=== PATIENT | female | born 1935 | race Caucasian/White ===

== ENCOUNTER 2019-04-18 18:35 | Observation (INO) | payer OTHER ==
[2019-04-18 18:50] LABS: Absolute Lymphocytes (CBC) 2.3 K/uL (0.7-4.9); Basophils % 1.1 % (0-1.3); Lymphocytes % 20.7 % (15.3-44.8); MPV 8.2 fL (7.6-11.3); RBC Red Blood Cell Count 4.86 M/uL (3.86-4.86)
[2019-04-18 18:54] LABS: Protime INR 1.04
--- NOTE | 2019-04-18 19:13 | EDPHYS ---
Physician Documentation [facility] Name: Socorro Calzada Age: 83 yrs Sex: Female : 1935 Arrival Date: 04/18/2019 Time: 18:37 Bed 3 Private MD: ED Physician Ras Barrera HPI: 04/18 19:05 This 83 yrs old Female presents to ER via Unassigned with complaints of Chest keith Pain. 19:05 The patient or guardian reports chest pain that is located primarily in the substernal keith area. Onset: today. The pain does not radiate. Associated signs and symptoms: The patient has no apparent associated signs or symptoms. The chest pain is described as a pressure. Duration: The patient or guardian reports a single episode, that is now resolved. Severity of pain: At its worst the pain was moderate in the emergency department the pain has resolved and did so just prior to arrival. 19:10 Modifying factors: The symptoms are alleviated by nothing. the symptoms are aggravated keith by nothing. The patient has not experienced similar symptoms in the past. Historical: - Immunization history:: Adult Immunizations up to date. - Social history:: Smoking status: Patient/guardian denies using tobacco. - Family history:: not pertinent. - Ebola Screening: : Patient denies exposure to infectious person Patient denies travel to an Ebola-affected area in the 21 days before illness onset. ROS: 19:05 Constitutional: Negative for fever, chills, and weight loss, Eyes: Negative for injury, keith pain, redness, and discharge, ENT: Negative for injury, pain, and discharge, Neck: Negative for injury, pain, and swelling, Respiratory: Negative for shortness of breath, cough, wheezing, and pleuritic chest pain, Abdomen/GI: Negative for abdominal pain, nausea, vomiting, diarrhea, and constipation, Back: Negative for injury and pain, : Negative for injury, bleeding, discharge, and swelling, MS/Extremity: Negative for injury and deformity, Skin: Negative for injury, rash, and discoloration, Neuro: Negative for headache, weakness, numbness, tingling, and seizure, Psych: Negative for depression, anxiety, suicide ideation, homicidal ideation, and hallucinations, Allergy/Immunology: Negative for hives, rash, and allergies, Endocrine: Negative for neck swelling, polydipsia, polyuria, polyphagia, and marked weight changes, Hematologic/Lymphatic: Negative for swollen nodes, abnormal bleeding, and unusual bruising. 19:05 Cardiovascular: Positive for chest pain, palpitations. Exam: 19:05 Constitutional: This is a well developed, well nourished patient who is awake, alert, keith and in no acute distress. Head/Face: Normocephalic, atraumatic. Eyes: Pupils equal round and reactive to light, extra-ocular motions intact. Lids and lashes normal. Conjunctiva and sclera are non-icteric and not injected. Cornea within normal limits. Periorbital areas with no swelling, redness, or edema. ENT: Nares patent. No nasal discharge, no septal abnormalities noted. Tympanic membranes are normal and external auditory canals are clear. Oropharynx with no redness, swelling, or masses, exudates, or evidence of obstruction, uvula midline. Mucous membranes moist. Neck: Trachea midline, no thyromegaly or masses palpated, and no cervical lymphadenopathy. Supple, full range of motion without nuchal rigidity, or vertebral point tenderness. No Meningismus. Chest/axilla: Normal chest wall appearance and motion. Nontender with no deformity. No lesions are appreciated. Cardiovascular: Regular rate and rhythm with a normal S1 and S2. No gallops, murmurs, or rubs. Normal PMI, no JVD. No pulse deficits. Respiratory: Lungs have equal breath sounds bilaterally, clear to auscultation and percussion. No rales, rhonchi or wheezes noted. No increased work of breathing, no retractions or nasal flaring. Abdomen/GI: Soft, non-tender, with normal bowel sounds. No distension or tympany. No guarding or rebound. No evidence of tenderness throughout. Back: No spinal tenderness. No costovertebral tenderness. Full range of motion. Female : Normal external genitalia. Skin: Warm, dry with normal turgor. Normal color with no rashes, no lesions, and no evidence of cellulitis. MS/ Extremity: Pulses equal, no cyanosis. Neurovascular intact. Full, normal range of motion. Neuro: Awake and alert, GCS 15, oriented to person, place, time, and situation. Cranial nerves II-XII grossly intact. Motor strength 5/5 in all extremities. Sensory grossly intact. Cerebellar exam normal. Normal gait. Psych: Awake, alert, with orientation to person, place and time. Behavior, mood, and affect are within normal limits. 19:05 Musculoskeletal/extremity: DVT Exam: No signs of deep vein thrombosis. no pain, no swelling, no tenderness, negative Homans' sign noted on exam, no appreciated bluish discoloration, no erythema, no increased warmth. Vital Signs: 19:37 BP 179 / 79; Pulse 85; Resp 17; Pulse Ox 98% on R/A; ss 19:42 Weight 89.18 kg (M); rv 19:57 BP 180 / 91; Pulse 78; Resp 17; Pulse Ox 100% on R/A; rv 21:29 BP 168 / 73; Pulse 59; Resp 18; Pulse Ox 98% on R/A; rv MDM: 18:39 Patient medically screened. [facility] 19:08 Data reviewed: vital signs, nurses notes, lab test result(s), EKG, radiologic studies, keith plain films. 04/18 18:40 Order name: Basic Metabolic Panel; Complete Time: 19:21 [facility] 04/18 18:40 Order name: CBC with Diff; Complete Time: 19:09 [facility] 04/18 18:40 Order name: LFT's; Complete Time: 19:21 [facility] 04/18 18:40 Order name: Magnesium; Complete Time: 19:21 [facility] 04/18 18:40 Order name: NT PRO-BNP; Complete Time: 19:21 [facility] 04/18 18:40 Order name: PT-INR; Complete Time: 19:09 [facility] 04/18 18:40 Order name: Troponin (emerg Dept Use Only); Complete Time: 19:21 [facility] 04/18 18:40 Order name: Lipase; Complete Time: 19:21 [facility] 04/18 18:40 Order name: Urine Culture [facility] 04/18 19:05 Order name: TSH [facility] 04/18 19:05 Order name: Thyroid Stimulating Hormone [facility] 04/18 19:10 Order name: Urine Dipstick--Ancillary (enter results) [facility] 04/18 20:13 Order name: Basic Metabolic Panel [facility] 04/18 20:13 Order name: Basic Metabolic Panel [facility] 04/18 18:40 Order name: XRAY Chest (1 view) [facility] 04/18 20:13 Order name: Echo with Doppler [facility] 04/18 20:13 Order name: CBC with Automated Diff [facility] 04/18 20:13 Order name: CBC with Automated Diff [facility] 04/18 20:13 Order name: Lipid Profile [facility] 04/18 20:13 Order name: Lipid Profile [facility] 04/18 20:13 Order name: T4 Free [facility] 04/18 20:13 Order name: T4 Free [facility] 04/18 20:13 Order name: Troponin I [facility] 04/18 20:13 Order name: Troponin I [facility] 04/18 20:13 Order name: Troponin I [facility] 04/18 20:13 Order name: Thyroid Stimulating Hormone [facility] 04/18 20:13 Order name: Thyroid Stimulating Hormone [facility] 04/18 18:40 Order name: EKG; Complete Time: 18:42 [facility] 04/18 18:40 Order name: Cardiac monitoring; Complete Time: 18:59 [facility] 04/18 18:40 Order name: EKG - Nurse/Tech; Complete Time: 18:59 [facility] 04/18 18:40 Order name: IV Saline Lock; Complete Time: 18:59 [facility] 04/18 18:40 Order name: Labs collected and sent; Complete Time: 18:59 [facility] 04/18 18:40 Order name: O2 Per Protocol; Complete Time: 18:59 [facility] 04/18 18:40 Order name: O2 Sat Monitoring; Complete Time: 18:59 [facility] 04/18 18:40 Order name: Urine Dipstick-Ancillary (obtain specimen); Complete Time: 19:04 [facility] 04/18 18:43 Order name: EKG Electrocardiogram [facility] 04/18 20:13 Order name: CONS Physician Consult [facility] 04/18 20:13 Order name: Heart Healthy [facility] 04/18 20:13 Order name: EKG Electrocardiogram [facility] 04/18 20:13 Order name: EKG Electrocardiogram [facility] Administered Medications: 19:54 Drug: Lopressor (metoprolol TARTRATE) 50 mg Route: PO; rv 21:31 Follow up: Response: No adverse reaction rv 19:54 Drug: Pepcid 20 mg Route: IVP; Site: right forearm; rv 21:31 Follow up: Response: No adverse reaction rv 19:55 Drug: Aspirin Chewable Tablet 324 mg Route: PO; rv 21:31 Follow up: Response: No adverse reaction rv 19:55 Drug: Lovenox 1 mg/kg Route: Sub-Q; Site: right lower abdomen; rv 21:31 Follow up: Response: No adverse reaction rv 19:55 Drug: Rocephin 1 grams Route: IV; Rate: per protocol; Site: right forearm; rv 21:31 Follow up: IV Status: Completed infusion rv 21:32 Follow up: IV Status: Completed infusion rv Disposition: 04/18/19 19:12 Hospitalization ordered by Odalis Anglin for Observation. Preliminary diagnosis are Chest pain, unspecified, Palpitations, Urinary tract infection, site not specified. - Bed requested for Telemetry/MedSurg (observation). - Status is Observation. rv - Condition is Stable. - Problem is new. - Symptoms have improved. UTI on Admission? Yes Signatures: Dispatcher [employer] EDMS Ras Barrera MD MD cha Smirch, Shelby, RN RN Merary Latham RN RN Elliot Thakkar RN RN rv Corrections: (The following items were deleted from the chart) 21:09 19:12 Hospitalization Ordered by Odalis Anglin MD for Observation. Preliminary cg diagnosis is Chest pain, unspecified; Palpitations; Urinary tract infection, site not specified. Bed requested for Telemetry/MedSurg (observation). Status is Observation. Condition is Stable. Problem is new. Symptoms have improved. UTI on Admission? Yes. [facility] 21:32 21:09 04/18/2019 19:12 Hospitalization Ordered by Odalis Anglin MD for Observation. rv Preliminary diagnosis is Chest pain, unspecified; Palpitations; Urinary tract infection, site not specified. Bed requested for Telemetry/MedSurg (observation). Status is Observation. Condition is Stable. Problem is new. Symptoms have improved. UTI on Admission? Yes. cg
--- NOTE | 2019-04-18 19:13 | ER ---
Nurse's Notes [facility] Name: Socorro Calzada Age: 83 yrs Sex: Female : 1935 Arrival Date: 04/18/2019 Time: 18:37 Bed 3 Private MD: Diagnosis: Chest pain, unspecified;Palpitations;Urinary tract infection, site not specified Presentation: 04/18 18:35 Presenting complaint: Patient states: chest discomfort and palpitations that began ss prior to arrival. Patient reports that her pulse was reading 170 at home on home BP machine. Transition of care: patient was not received from another setting of care. Onset of symptoms was April 18, 2019. Risk Assessment: Do you want to hurt yourself or someone else? Patient reports no desire to harm self or others. Initial Sepsis Screen: Does the patient meet any 2 criteria? No. Patient's initial sepsis screen is negative. Does the patient have a suspected source of infection? No. Patient's initial sepsis screen is negative. Care prior to arrival: None. 18:35 Acuity: WANDA 3 ss 18:35 Method Of Arrival: Ambulatory ss Historical: - Immunization history:: Adult Immunizations up to date. - Social history:: Smoking status: Patient/guardian denies using tobacco. - Family history:: not pertinent. - Ebola Screening: : Patient denies exposure to infectious person Patient denies travel to an Ebola-affected area in the 21 days before illness onset. Screenin:56 Abuse screen: Denies threats or abuse. Denies injuries from another. Nutritional rv screening: No deficits noted. Tuberculosis screening: No symptoms or risk factors identified. Fall Risk None identified. Assessment: 19:55 General: Appears in no apparent distress. comfortable, Behavior is calm, cooperative. rv Pain: Complains of pain in chest Pain does not radiate. Pain began suddenly. Neuro: Level of Consciousness is awake, alert, obeys commands, Oriented to person, place, time, situation. Cardiovascular: Patient's skin is warm and dry. Rhythm is sinus rhythm. Respiratory: Airway is patent. GI: No signs and/or symptoms were reported involving the gastrointestinal system. : No signs and/or symptoms were reported regarding the genitourinary system. EENT: No signs and/or symptoms were reported regarding the EENT system. Derm: Skin is intact. Musculoskeletal: No signs and/or symptoms reported regarding the musculoskeletal system. 19:58 Reassessment: patient appears to be more comfortable now compared to when she came in. rv denies any pain. updated on the results of the diagnostics and plan of care while the is in the room. awaiting admission orders for now. Vital Signs: 19:37 BP 179 / 79; Pulse 85; Resp 17; Pulse Ox 98% on R/A; ss 19:42 Weight 89.18 kg (M); rv 19:57 BP 180 / 91; Pulse 78; Resp 17; Pulse Ox 100% on R/A; rv 21:29 BP 168 / 73; Pulse 59; Resp 18; Pulse Ox 98% on R/A; rv ED Course: 18:30 Inserted saline lock: 20 gauge in right forearm, using aseptic technique. Blood rv collected. Patient maintains SpO2 saturation greater than 95% on room air. 18:35 Arm band placed on right wrist. ss 18:37 Patient arrived in ED. mr 18:38 Ras Barrera MD is Attending Physician. keith 18:49 EKG done, by ED staff, reviewed by Ras Barrera MD. jb1 19:02 XRAY Chest (1 view) In Process Unspecified. EDMS 19:12 Odalis Anglin MD is Hospitalizing Provider. keith 19:32 Elliot Thakkar, GARETT is Primary Nurse. rv 19:36 Triage completed. ss 19:57 Patient has correct armband on for positive identification. Placed in gown. Bed in low rv position. Call light in reach. Side rails up X2. Adult w/ patient. desk monitor on. Pulse ox on. NIBP on. 21:30 No provider procedures requiring assistance completed. Patient admitted, IV remains in rv place. Administered Medications: 19:54 Drug: Lopressor (metoprolol TARTRATE) 50 mg Route: PO; rv 21:31 Follow up: Response: No adverse reaction rv 19:54 Drug: Pepcid 20 mg Route: IVP; Site: right forearm; rv 21:31 Follow up: Response: No adverse reaction rv 19:55 Drug: Aspirin Chewable Tablet 324 mg Route: PO; rv 21:31 Follow up: Response: No adverse reaction rv 19:55 Drug: Lovenox 1 mg/kg Route: Sub-Q; Site: right lower abdomen; rv 21:31 Follow up: Response: No adverse reaction rv 19:55 Drug: Rocephin 1 grams Route: IV; Rate: per protocol; Site: right forearm; rv 21:31 Follow up: IV Status: Completed infusion rv 21:32 Follow up: IV Status: Completed infusion rv Outcome: 19:12 Decision to Hospitalize by Provider. keith 21:30 Admitted to Med/surg accompanied by nurse, via wheelchair, room , with chart, Report rv called to MARCOS BAJWA 21:30 Condition: good 21:30 Instructed on the need for admit. 21:32 Patient left the ED. rv Signatures: Dispatcher [employer] EDMS Edil Thornton [email or web address] Ras Barrera MD MD cha Rivera, Mary mr Iraida Wells RN RN Elliot Wen RN RN rv
[2019-04-18 19:18] LABS: ALT/SGPT 24 U/L (12-78); AST/SGOT 17 U/L (15-37); Albumin 3.6 g/dL (3.4-5.0); Alkaline Phosphatase 98 U/L (45-117); BUN Blood Urea Nitrogen 19 mg/dL (7-18); Bicarbonate 28 mmol/L (21-32); Bilirubin Direct < 0.1 mg/dL (0-0.2); Bilirubin Total 0.3 mg/dL (0.2-1.0); Glucose Level 108 mg/dL (74-106); Lipase 143 U/L (73-393); Magnesium 2.2 mg/dL (1.8-2.4); NT PRO-BNP 277 pg/mL (<450); Potassium 3.8 mmol/L (3.5-5.1); Protein, Total 7.8 g/dL (6.4-8.2); Sodium Level 143 mmol/L (136-145); Troponin (Emerg Dept Use Only) < 0.02 ng/mL (0.0-0.045)
--- NOTE | 2019-04-18 19:27 | RAD REPORT ---
EXAM DESCRIPTION: RAD - Chest Single View - 04/18/2019 7:05 pm CLINICAL HISTORY: Chest pain COMPARISON: December 2015 TECHNIQUE: AP portable chest image was obtained 1859 hours . FINDINGS: No focal lung parenchymal process. Mild prominent interstitial pattern matches comparison. Heart and vasculature are normal. No measurable pleural effusion and no pneumothorax. No acute bony abnormality seen. No acute aortic findings suspected. IMPRESSION: No acute cardiopulmonary process. No significant interval change.
[2019-04-18] MEDS ORDERED: ASPIRIN 81 MG CHEWABLE TABLET ONE (19:45)
[2019-04-18] MEDS ORDERED: FAMOTIDINE 20 MG/2 ML VIAL IV ONE (19:46)
[2019-04-18] MEDS ORDERED: ENOXAPARIN 100 MG/ML SYR SQ ONE (19:46)
[2019-04-18] MEDS ORDERED: CEFTRIAXONE/SWI 1gm 1 GM/10 ML SYR ONE (19:46)
[2019-04-18] MEDS ORDERED: METOPROLOL TAR 50 MG TAB ONE (19:46)
[2019-04-18] MEDS ORDERED: MORPHINE 4 MG/ML SYR IV PRN (20:08)
[2019-04-18] MEDS ORDERED: ALPRAZOLAM 0.25 MG TABLET PO PRN (20:08)
[2019-04-18] MEDS ORDERED: ACETAMINOPHEN 500 MG TAB PO PRN (20:08)
[2019-04-18 20:41] LABS: Urine Blood TRACE (NEG); Urine Glucose NEGATIVE (NEG); Urine Protein NEGATIVE (NEG); Urine Specific Gravity 1.015 (1.005-1.030)
[2019-04-18] MEDS ORDERED: METOPROLOL TAR 50 MG TAB PO SCH (21:00)
[2019-04-18] MEDS ORDERED: CEFTRIAXONE 1 GM/NS 50 ML 1 GM/50 ML BAG IV SCH (21:00)
[2019-04-18 22:06] VITALS: BMI 33.4
[2019-04-18] MEDS ORDERED: PNEUMOCOCCAL VACCINE 0.5 ML IMVAC ONE (22:34)
[2019-04-18] MEDS ORDERED: INFLUENZA VACCINE (for 3y+) 0.5 ML DOSE IMVAC ONE (22:34)
[2019-04-19 00:37] VITALS: TEMP 98.2
[2019-04-19 06:02] LABS: Absolute Lymphocytes (CBC) 2.3 K/uL (0.7-4.9); Basophils % 0.8 % (0-1.3); Hematocrit 38.4 % (36.0-45.0); Lymphocytes % 27.9 % (15.3-44.8); MPV 8.3 fL (7.6-11.3); RBC Red Blood Cell Count 4.43 M/uL (3.86-4.86)
[2019-04-19 06:27] LABS: Potassium 3.9 mmol/L (3.5-5.1); Troponin I 0.02 ng/mL (0.0-0.045)
[2019-04-19 06:31] LABS: Thyroid Stimulating Hormone 4.27 uIU/mL (0.360-3.740)
--- NOTE | 2019-04-19 08:44 | P.HP ---
Certification for Inpatient Patient admitted to: Observation With expected LOS: <2 Midnights Patient will require the following post-hospital care: None Practitioner: I am a practitioner with admitting privileges, knowledge of patient current condition, hospital course, and medical plan of care. Services: Services provided to patient in accordance with Admission requirements found in Title 42 Section 412.3 of the Code of Federal Regulations Patient History Date of Service: 04/18/19 Reason for admission: CP r/o ACS History of Present Illness: Patient is a 83-year-old female came to the hospital with chest discomfort and palpitations. Patient's blood pressure readings suggested that her heart rate were elevated in the 170s. Patient's chest pain was mainly in the sternal region. Patient came into the ER for further evaluation. Patient's initial troponin and EKG were negative. Because of patient's multiple risk factors, we decided to admit the patient to the hospital for observation. Patient has been following up with her primary care provider, Dr. Griffiths, and she was scheduled to have a CT scan of her abdomen because of abdominal discomfort. Will try to get this done while she is in the hospital because of her current clinical symptoms. If this is negative and her cardiac workup is unremarkable she may get to go home later today. Allergies Latex, Natural Rubber Allergy (Mild, Verified 04/18/19 22:07) Itching/Hives/Rash Codeine Allergy (Intermediate, Uncoded 04/18/19 22:07) Shortness of breath Home Medications: Primidone [Mysoline *] 1 tab PO SEECOM 04/18/19 - Past Medical/Surgical History Has patient received pneumonia vaccine in the past: No Diabetic: No -: prolapse uterus -: Tremors -: Borderline COPD -: History of breast cancer on tamoxifen for 80 years -: Lt mastectomy -: EGD 2weeks -: cholecystecomy -: fibroid tumor removal -: D&C -: cataract sx - Family History Father Medical History: Other (see notes) Notes: parkinson - Social History Smoking Status: Never smoker Alcohol use: No CD- Drugs: No Caffeine use: No Place of Residence: Home Review of Systems 10-point ROS is otherwise unremarkable Physical Examination - Vital Signs Temperature: 98.2 F Blood Pressure: 172/78 Pulse: 57 Respirations: 15 Pulse Ox (%): 94 - Physical Exam General: Alert, In no apparent distress, Oriented x3 HEENT: Atraumatic, PERRLA, Mucous membr. moist/pink, EOMI, Sclerae nonicteric Neck: Supple, 2+ carotid pulse no bruit, No LAD, Without JVD or thyroid abnormality Respiratory: Clear to auscultation bilaterally, Normal air movement Cardiovascular: Regular rate/rhythm, Normal S1 S2, Systolic murmur Gastrointestinal: Normal bowel sounds, Soft and benign, Non-distended, No tenderness Musculoskeletal: No clubbing, No swelling, No tenderness Integumentary: No rashes Neurological: Normal gait, Normal speech, Normal strength at 5/5 x4 extr, Normal tone, Sensation intact, Cranial nerves 3-12 intact, Normal affect Lymphatics: No axilla or inguinal lymphadenopathy - Studies Laboratory Data (last 24 hrs) 04/18/19 18:40: PT 12.3, INR 1.04 04/18/19 18:40: WBC 11.1 H, Hgb 14.5, Hct 42.0, Plt Count 259 04/18/19 18:40: Sodium 143, Potassium 3.8, BUN 19 H, Creatinine 0.98, Glucose 108 H, Magnesium 2.2, Total Bilirubin 0.3, AST 17, ALT 24, Alkaline Phosphatase 98, Lipase 143 Assessment & Plan - Problems (Diagnosis) (1) Chest pain, rule out acute myocardial infarction Current Visit: Yes Status: Acute (2) Abdominal discomfort Current Visit: Yes Status: Acute (3) History of breast cancer Current Visit: Yes Status: Acute - Plan 1. Serial troponins and EKG 2. Cardiology consultation 3. Echocardiogram and may need an outpatient stress test if cardiology is agreeable 4. Continue cardiac meds. Also get CT of the abdomen and pelvis 5. Out of bed and ambulate; patient continues to improve and workup is negative she should be able to go home later today. Discharge Plan: Home Plan to discharge in: Greater than 2 days - Advance Directives Does patient have a Living Will: No Does patient have a Durable POA for Healthcare: No - Code Status/Comfort Care Code Status Assessed: Yes Code Status: Full Code Critical Care: No Time Spent Managing PTS Care (In Minutes): 45
--- NOTE | 2019-04-19 08:49 | P.PN ---
Subjective Date of Service: 04/19/19 Patient is clinically doing much better. No longer having any chest pain. She was scheduled to have a CT scan and will go ahead and proceed with this today. Could explain her symptomatology on arrival yesterday. Continue monitoring on telemetry. Await Cardiology input at this time. Review of Systems 10-point ROS is otherwise unremarkable Physical Examination - Vital Signs Temperature: 98.2 F Blood Pressure: 172/78 Pulse: 57 Respirations: 15 Pulse Ox (%): 94 - Physical Exam General: Alert, In no apparent distress, Oriented x3 Respiratory: Clear to auscultation bilaterally, Normal air movement Cardiovascular: Regular rate/rhythm, Normal S1 S2, Systolic murmur Gastrointestinal: Normal bowel sounds, Soft and benign, Non-distended, No tenderness Musculoskeletal: No clubbing, No swelling, No tenderness Neurological: Normal speech, Normal strength at 5/5 x4 extr, Normal tone, Sensation intact, Cranial nerves 3-12 intact, Normal reflexes 2+, Normal affect - Studies Laboratory Data (last 24 hrs) 04/18/19 18:40: PT 12.3, INR 1.04 04/18/19 18:40: WBC 11.1 H, Hgb 14.5, Hct 42.0, Plt Count 259 04/18/19 18:40: Sodium 143, Potassium 3.8, BUN 19 H, Creatinine 0.98, Glucose 108 H, Magnesium 2.2, Total Bilirubin 0.3, AST 17, ALT 24, Alkaline Phosphatase 98, Lipase 143 Medications List Reviewed: Yes Assessment & Plan - Problems (Diagnosis) (1) Chest pain, rule out acute myocardial infarction Current Visit: Yes Status: Acute (2) Abdominal discomfort Current Visit: Yes Status: Acute (3) History of breast cancer Current Visit: Yes Status: Acute - Plan Current plan of care as mentioned below: 1. Serial troponins and EKG have been negative so far. Anticipate discharge home later today 2. Cardiology consultation pending 3. Echocardiogram and may need an outpatient stress test if cardiology is agreeable 4. Continue cardiac meds. Also get CT of the abdomen and pelvis as patient has history of breast cancer and has had some abdominal discomfort 5. Out of bed and ambulate; patient continues to improve and workup is negative she should be able to go home later today. - Advance Directives Does patient have a Living Will: No Does patient have a Durable POA for Healthcare: No - Code Status/Comfort Care Code Status: Full Code Critical Care: No Time Spent Managing PTS Care (In Minutes): 20
[2019-04-19] MEDS ORDERED: HYDRALAZINE HCL 20 MG/ML VIAL IV PRN (08:58)
[2019-04-19] MEDS: ASPIRIN EC 81 MG TAB PO SCH ×2 (09:00→09:05)
[2019-04-19] MEDS ORDERED: AMLODIPINE 10 MG TAB PO SCH (09:00)
[2019-04-19] MEDS ORDERED: ENOXAPARIN 40 MG/0.4 ML SQ SCH (09:00)
[2019-04-19] MEDS ORDERED: CEFTRIAXONE/SWI 1gm 1 GM/10 ML SYR IV SCH (09:00)
[2019-04-19] MEDS ORDERED: LOSARTAN POTASSIUM 50 MG TABLET PO SCH (09:00)
--- NOTE | 2019-04-19 09:36 | EKG ---
Test Date: 2019-04-18 Test Time: 18:46:13 Lens Inspector: BRINA MEASUREMENT RESULTS: Intervals: Rate: 84 WA: 178 QRSD: 82 QT: 396 QTc: 467 [place]: P: 58 WA: 178 QRS: -26 T: 48 INTERPRETIVE STATEMENTS: Normal sinus rhythm Inferior infarct, age undetermined Possible Anterior infarct, age undetermined Abnormal ECG Compared to ECG 12/24/2015 14:41:14 Myocardial infarct finding now present Electronically Signed On 04-19-19 09:35:09 CDT by Ronald Hinojosa
[2019-04-19] MEDS ORDERED: REGADENOSON 0.4 MG/5 ML SYR IV ONE (10:40)
--- NOTE | 2019-04-19 11:09 | ECHO ---
HEIGHT: 5 ft 4 in WEIGHT: 194 lb 11.2 oz DATE OF STUDY: 04/19/[address]: Odalis Anglin MD 2-DIMENSIONAL: YES M.MODE: YES DOPPLER: YES COLOR FLOW: YES TDS: NO PORTABLE: NO DEFINITY: NO BUBBLE STUDY: NO DIAGNOSIS: CHEST PAIN CARDIAC HISTORY: CATHERIZATION: NO SURGERY: NO PROSTHETIC VALVE: NO PACEMAKER: NO MEASUREMENTS (cm) DIASTOLIC (NORMALS) SYSTOLIC (NORMALS) IVSd 0.9 (0.6-1.2) LA Diam 3.7 (1.9-4.0) LVEF 79% LVIDd 4.6 (3.5-5.7) LVIDs 2.4 (2.0-3.5) %FS 47% LVPWd 1.1 (0.6-1.2) Ao Diam 2.5 (2.0-3.7) 2 DIMENSIONAL ASSESSMENT: RIGHT ATRIUM: NORMAL LEFT ATRIUM: NORMAL RIGHT VENTRICLE: NORMAL LEFT VENTRICLE: NORMAL TRICUSPID VALVE: NORMAL MITRAL VALVE: NORMAL PULMONIC VALVE: NORMAL AORTIC VALVE: NORMAL PERICARDIAL EFFUSION: NONE AORTIC ROOT: NORMAL LEFT VENTRICULAR WALL MOTION: NORMAL. DOPPLER/COLOR FLOW: TRACE OF MITRAL REGURGITATION. COMMENTS: NORMAL 2D ECHO. TRACE OF MITRAL REGURGITATION. TECHNOLOGIST: GENEVA BROOKE
--- NOTE | 2019-04-19 11:12 | RAD REPORT ---
EXAM DESCRIPTION: CT - Abdomen Pelvis W Contrast - 04/19/2019 10:48 am CLINICAL HISTORY: Abdominal pain COMPARISON: 2016 TECHNIQUE: Computed axial tomography of the abdomen pelvis was obtained. 100 cc Isovue-300 was admin istered intravenously. Oral contrast was not requested which limits evaluation of bowel. All CT scans are performed using dose optimization technique as appropriate and may include automated exposure control or mA/KV adjustment according to patient size. FINDINGS: The liver, spleen, pancreas, adrenal and right kidney appear unremarkable. A 6.8 centimeter left renal cyst without significant 2 There is no evidence of diverticulitis. The wall of distal rectum appears mildly thickened Small hiatal hernia IMPRESSION: Apparent thickening of the wall of the distal rectum may be secondary to incomplete dist ention, inflammation or mass. Digital examination recommended.
--- NOTE | 2019-04-19 12:12 | EKG ---
Test Date: 2019-04-19 Test Time: 07:43:14 [employer] Supervisor: EDDIE MEASUREMENT RESULTS: Intervals: Rate: 60 MA: 222 QRSD: 86 QT: 446 QTc: 446 [place]: P: 46 MA: 222 QRS: -20 T: 20 INTERPRETIVE STATEMENTS: Sinus rhythm with sinus arrhythmia with 1st degree AV block Possible Anterior infarct, age undetermined Abnormal ECG Compared to ECG 04/18/2019 18:46:13 First degree AV block now present Myocardial infarct finding still present Electronically Signed On 04-19-19 12:10:41 CDT by Ronald Hinojosa
[2019-04-19 12:47] VITALS: O2SAT 98
[2019-04-19] MEDS ORDERED: ONDANSETRON 4 MG/2 ML VIAL IV PRN (13:15)
--- NOTE | 2019-04-19 14:05 | CON ---
Identifying Data: An 83-year-old woman. Chief Complaint: Heart racing and pressure in the chest. History Of Present Illness: Ms. Calzada was in her usual state of health. She is undergoing a work up for abdominal pain, but she notes that over the years, she has had frequent episodes of feeling he r heart palpitate and race yesterday that happened and it lasted long enough. Her have her w alk into his room. He has a blood pressure cuff not automated. He is very confident. He listened t o her heart and took blood pressure and noted her heart rate was in the 140 to 150 range, irregular. It went away before they got to the hospital, but they decided to come to the hospital. Since that has occurred, she has been in sinus rhythm, sinus bradycardia. Cardiac enzymes are normal. Patient does not have diabetes, hypertension, dyslipidemia, history of tobacco, alcohol, or caffeine use. He r only home medication is primidone. She is allergic to natural rubber and codeine. She has never h ad myocardial infarction, never had an evaluation for her palpitations. Physical Examination: General: She is 5 feet 4 inches, 194 pounds. Alert, oriented, pleasant, not in distress. Neck: Carotids, no bruit. Lungs: Clear. Heart: Regular rate and rhythm. No murmur, rub, or gallop. Abdomen: Soft. Extremities: No cyanosis, clubbing, or edema. Distal pulses normal. Laboratory Data: EKG shows sinus bradycardia in the 50s, otherwise normal. Impression: The patient has an arrhythmia. Most likely, we have not seen it, so it would only be ga s work, but by far the most likely rhythm she has is paroxysmal atrial fibrillation. I think we shou ld do an echo pharmacologic stress test. Continue to monitor her rhythm. If we have not seen any at [facility] fibrillation, she should wear a 30-day event monitor or get an implantable loop recorder to see if she has atrial fibrillation. If so, she would need to be anticoagulated and be on antiarrhythmic drug. RUTHY/IGNACIO Voice ID: [id number] Report ID: [id number]
--- NOTE | 2019-04-19 14:05 | RAD REPORT ---
EXAM DESCRIPTION: NM - Rest Stress Cardiac Imaging - 04/19/2019 1:57 pm CLINICAL HISTORY: CP Chest pain. COMPARISON: No comparisons TECHNIQUE: The patient was administered approximately 10mCi of Tc 99m Sestamibi prior to resting SPE CT imaging of the heart. The patient was then administered approximately 30 mCi of Tc 99m Sestamibi f ollowing exercise or pharmacologic stress. Multiplanar SPECT images were reviewed. FINDINGS: No stress induced ischemic defect is seen to suggest stress induced ischemia. No fixed def ect is seen to suggest hibernating myocardium or scarred myocardium. The end diastolic volume is 74 ml, the end systolic volume is 21 ml, and the ejection fraction is 71 %. IMPRESSION: No stress induced ischemia.
[2019-04-19] MEDS ORDERED: HYDROCORTISONE ACETATE 25MG SUPP PR PRN (16:20)
--- NOTE | 2019-04-19 17:52 | P.DS ---
Admission Date: 04/18/19 Discharge Date: 04/19/19 Disposition: ROUTINE DISCHARGE Discharge Condition: GOOD Reason for Admission: CP r/o ACS Consultations: Cardiology-Dr. Hinojosa. - Problems (1) Abdominal discomfort Current Visit: Yes Status: Acute (2) Chest pain, rule out acute myocardial infarction Current Visit: Yes Status: Acute Brief History of Present Illness: 83-year-old woman presented to the emergency department with a complaint of chest pain and palpitation. She described a substernal and epigastric pain. Her blood pressure was noted to be elevated with systolic in the 180s on presentation. It appears her heart rate in during the blood pressure really was 170. Patient is suspected to have experienced an arrhythmia. Her initial troponin was negative, chest x-ray demonstrated no acute disease. EKG showed normal sinus rhythm. Patient was placed under observation for ACS rule out. Hospital Course: Troponin trended x3 was negative. No arrhythmia identified on the cardiac rehabilitation specialist. She was evaluated by cardiology, Aks stress test and echocardiogram were performed which were unremarkable. No stress-induced ischemia or scarring was reported on the nuclear stress test. An arrhythmia is suspected. Her blood pressure was also elevated with systolic in the 170s during the hospital stay. Patient is started on Norvasc and losartan. Dr. Hinojosa recommended outpatient event monitor. Patient is deemed clinically stable for discharge. She will follow with Dr. Hinojosa in the office for arrangement for event monitor. Vital Signs/Physical Exam: Temp Pulse Resp BP Pulse Ox 98.2 F 57 15 172/78 H 94 04/19/19 13:55 04/19/19 09:00 04/19/19 08:49 04/19/19 09:00 04/19/19 08:49 General: Alert, In no apparent distress, Oriented x3 HEENT: Mucous membr. moist/pink Neck: Supple, JVD not distended Respiratory: Clear to auscultation bilaterally, Normal air movement Cardiovascular: No edema, Normal pulses, Regular rate/rhythm, Normal S1 S2, No murmurs Capillary refill: <2 Seconds Gastrointestinal: Normal bowel sounds, Soft and benign, Non-distended, No tenderness Musculoskeletal: No clubbing, No swelling Integumentary: No rashes Neurological: Normal strength at 5/5 x4 extr, Cranial nerves 3-12 intact Laboratory Data at Discharge: WBC 8.2 K/uL (4.3-10.9) D 04/19/19 05:31 Hgb 12.9 g/dL (12.0-15.0) 04/19/19 05:31 Hct 38.4 % (36.0-45.0) 04/19/19 05:31 Plt Count 244 K/uL (152-406) 04/19/19 05:31 PT 12.3 SECONDS (9.5-12.5) 04/18/19 18:40 INR 1.04 04/18/19 18:40 Sodium 144 mmol/L (136-145) 04/19/19 05:31 Potassium 3.9 mmol/L (3.5-5.1) 04/19/19 05:31 BUN 17 mg/dL (7-18) 04/19/19 05:31 Creatinine 0.78 mg/dL (0.55-1.3) 04/19/19 05:31 Glucose 84 mg/dL (74-106) 04/19/19 05:31 Magnesium 2.2 mg/dL (1.8-2.4) 04/18/19 18:40 Total Bilirubin 0.3 mg/dL (0.2-1.0) 04/18/19 18:40 AST 17 U/L (15-37) 04/18/19 18:40 ALT 24 U/L (12-78) 04/18/19 18:40 Alkaline Phosphatase 98 U/L (45-117) 04/18/19 18:40 Troponin I 0.02 ng/mL (0.0-0.045) 04/19/19 05:31 Triglycerides Cancelled 04/19/19 06:00 Cholesterol Cancelled 04/19/19 06:00 HDL Cholesterol Cancelled 04/19/19 06:00 Cholesterol/HDL Ratio Cancelled 04/19/19 06:00 Lipase 143 U/L (73-393) 04/18/19 18:40 Home Medications: Primidone [Mysoline *] 1 tab PO SEECOM 04/18/19 Amlodipine [Norvasc*] 10 mg PO DAILY 30 Days #30 tab 04/19/19 Hydrocort Acetate Suppos [Anucort-Hc Suppository*] 50 mg TN BID PRN 30 Days #60 supp 04/19/19 Losartan Potassium [Cozaar*] 50 mg PO BID 30 Days #60 tablet 04/19/19 New Medications: Amlodipine [Norvasc*] 10 mg PO DAILY 30 Days #30 tab Hydrocort Acetate Suppos [Anucort-Hc Suppository*] 50 mg TN BID PRN 30 Days #60 supp PRN Reason: Hemorrhoids Losartan Potassium [Cozaar*] 50 mg PO BID 30 Days #60 tablet Diet: AHA Activity: Ad garry Followup: Ronald Hinojosa MD [ACTIVE - CAN ADMIT] - 1-2 Days
--- NOTE | 2019-04-20 08:24 | TREADPHA ---
DX: CHEST PAIN Date of Study: 04/19/19 Ht: 5 4 Wt: 194 lb 11.2 oz Consulting Physician: ASIM MEDICATIONS: TYLENOL, XANAX, NORVASC, ASPIRIN, LOVENOX, COZAAR, APRESOLINE HISTORY: 83 YEAR OLD FEMALE WITH COMPLAINTS OF CHEST PAIN. HISTORY OF ESSENTIAL TREMORS, HYPERTENSION, BREAST CANCER LEFT BREAST MASTECTOMY, NON DRINKERS, NON SMOKER PHYSICIAL EXAMINATION: RESTING B.P.: 176/82 RESTING H.R.: 68 RESTING EKG: NORMAL. PROTOCOL: LEXISCAN EXERCISE TIME: 3:30 B.P. AT PEAK STRESS: 163/74 IMPRESSION: LEXISCAN INJECTED, FOLLOWED BY CARDIOLITE PER PROTOCOL, SEE NUCLEAR MEDICINE REPORT. NO SUPRA VENTRICULAR TACHYCARDIA, VENTRICULAR TACHYCARDIA, PREMATURE ATRIAL COMPLEXES, PREMATURE VENTRICULAR COMPLEXES. PATIENT REPORTS NO CHEST PAIN. NON DIAGNOSTIC EKG WITH LEXISCAN STRESS.
[2019-04-22 04:45] VITALS: BP 172/78
== END 2019-04-19 18:44 | disposition home or self-care (01) ==
LOC: ER 18:35 → ERHOLD 20:26 → 2ND 21:21
PROVIDERS: ADMIT Hospitalist; ATTEND Hospitalist
DX: R07.9 Chest pain, unspecified (principal); R10.9 Unspecified abdominal pain; R00.2 Palpitations; Z85.3 Personal history of malignant neoplasm of breast; Z91.040 Latex allergy status
CPT/HCPCS: 96365; 93005 ×2; 93017; 93306; 87088; 85025 ×2; 87086; 80048 ×2; 36415; 83735; 85610; 80061; 80076; 84443 ×2; 87077; 87186; 81003; 84484 ×3; 84439; 83690; 83880; 74177; 71045; 78452; 96375; 96372; 99285; 96366; Q9967; J0360; J1650; J2785; J0696 ×2; J2405; A9500; G0378 ×3

== ENCOUNTER 2023-04-25 02:59 | Observation (INO) | payer OTHER ==
--- OUTSIDE RECORDS SUMMARY | 2023-04-25 03:01 | XMS REPORT | Continuity of Care Document ---
:1935 Author Organization [facility] t Address [address] [facility] [address] [place] [id number] Care Team Providers Name Role Phone PCP, PATIENT DOES NOT HAVE A Primary Care Physician Unavaila ble Vaccine, Ang Db Uc Attending Clinician Unavailable Unknown, Attending Attending Clinician Unavailable ROYER BALDWIN Attending Clinician Unavailable Vaccine, Ang Db Cbc Fam Attending Clinician Unavailable Rayray SCHULTZ, Ry Moy Attending Clinician RY MONTIEL Attending Clinician Unavailable Sheila Jiang RN Attending Clinician Unavailable DENY GIVENS Attending Clinician Unavailable Only, Ang Db Test Attending Clinician Unavailable Emmanuel SCHULTZ, Deny Attending Clinician Payers Payer Name Policy Type Policy Number Effective Date Expiration Date S ource Problems This patient has no known problems. Allergies, Adverse Reactions, Alerts Allergy Allergy Status Severity Reaction(s) Onset Inactive Treating Comm ents Source Name Type Date Date Clinician NO KNOWN Drug Active [facility] Social History Social Habit Start Date Stop Date Quantity Comments Source Exposure to 2022-06-17 2022-06-27 Not sure [facility] SARS-CoV-2 (event) 00:00:00 09:01:00 Medica l Branch Sex Assigned At [address] 1935 [facility] 00:00:00 00:00:00 Medical Branch Smoking Status Start Date Stop Date Source Tobacco smoking consumption [facility] unknown Branch Medications This patient has no known medications. Procedures Procedure Date / Time Performed Performing Clinician Sourc e SARS-COV-2 COVID-19 2022-06-27 15:09:57 Doctor [facility], [facility] Name Medical [facility] 12 YRS+, BIVALENT 0.3ML, IM, (PFIZER CAMACHO TOP BOOSTER) SARS-COV-2 COVID-19 2021-11-24 14:16:46 Doctor Unassigned, No [facility] [place] [facility]ACC[facility] 12 Name [facility] YRS+,0.3ML,IM (PFIZER - CAMACHO TOP) Encounters Start End Encounter Admission Attending Care Care Encounter Source Date/Time Date/Time Type Type Clinicians Facility Department ID 2022-06-27 2022-06-27 Imm/Inj Vaccine, Ang Db [facility] [id number] Univers 09:00:00 09:10:00 Visit Unknown, [facility] HEALTH [id number] ity [facility] [id number] Candelario as SHAN?BLEA [id number] [address] MEDICAL OFFICE BUILDING 2022-06-27 2022-06-27 Outpatient R DENNY [facility] [id number] Univers 09:00:00 09:00:00 ROYER wells [facility] 2021-11-24 2021-11-24 Imm/Inj Vaccine, Ang Db [facility] [id number] Univers 09:00:00 09:10:00 Visit Rayray [facility] [id number] ity [facility] [id number] Candelario as SHAN?BLEA [id number] [address] MEDICAL OFFICE [facility] 2021-11-24 2021-11-24 Outpatient R RAYRAY [facility] [id number] Univers 09:00:00 09:00:00 RY wells [facility] 2021 2021 Letter ADRIÁN Jiang [id number] Univers 00:00:00 00:00:00 (Out) Sheila CHACON [id number] it [facility] [id number] Candelario as [id number] [address] 2021-06-24 2021-06-24 Outpatient Javi GIVENS [facility] [id number] Univers 11:30:00 11:22:45 DENY wells [facility] 2021-06-24 2021-06-24 Laboratory Only, Arnaldo Db Test [facility] [id number] [facility] 11:06:02 11:21:02 Only [facility] [id number] ity of [place] [id number] Candelario as SHAN?BLEA [id number] [address] MEDICAL OFFICE BUILDING Results This patient has no known results.
[2023-04-25] MEDS ORDERED: NA CHLORIDE 0.9% 1,000 ML ONE (03:57)
[2023-04-25] MEDS ORDERED: ONDANSETRON 4 MG/2 ML VIAL ONE (03:57)
[2023-04-25] MEDS ORDERED: FAMOTIDINE 20 MG/2 ML VIAL IV ONE (03:57)
[2023-04-25 04:01] LABS: Absolute Lymphocytes (CBC) 0.9 K/uL (0.7-4.9); Hematocrit 37.4 % (36.0-45.0); Lymphocytes % 10.2 % (15.3-44.8); MCV 87.8 fL (80-100); MPV 7.3 fL (7.6-11.3); Platelets 264 thou/uL (152-406); RBC Red Blood Cell Count 4.26 M/uL (3.86-4.86)
[2023-04-25 04:03] LABS: Protime INR 1.22
[2023-04-25 04:24] LABS: ALT/SGPT 45 U/L (13-56); Albumin 2.8 g/dL (3.4-5.0); Alkaline Phosphatase 97 U/L (45-117); BUN Blood Urea Nitrogen 15 mg/dL (7-18); Bicarbonate 24 mEq/L (21-32); Bilirubin Total 0.4 mg/dL (0.2-1.0); Glomerular Filtration Rate 76 ml/min (=/>90); Glucose Level 115 mg/dL (74-106); Lipase 26 U/L (13-75); NT PRO-BNP 927 pg/mL (<450); Protein, Total 6.6 g/dL (6.4-8.2); Sodium Level 138 mEq/L (136-145); Troponin High Sensitivity 33.1 pg/mL (<58.9)
[2023-04-25 04:25] LABS: AST/SGOT 39 U/L (15-37); Bilirubin Direct < 0.1 mg/dL (0-0.2); Bilirubin Indirect, Calculated ND mg/dL (0.2-0.8); Potassium 4.2 mEq/L (3.5-5.1)
[2023-04-25 04:45] LABS: Specific Gravity 1.011 (1.005-1.030); Urine Bacteria <20 /HPF (<20); Urine Bilirubin NEGATIVE (Negative); Urine Blood Negative (Negative); Urine Clarity Turbid (Clear); Urine Color Light-Yellow (Yellow); Urine Glucose NEGATIVE (Negative); Urine Mucus Slight /HPF (None Seen); Urine Protein NEGATIVE (Negative); Urine RBC <5 /HPF (None Seen); Urine Urobilinogen Normal (Normal)
--- NOTE | 2023-04-25 05:30 | EDPHYS ---
Physician Documentation [facility] Name: Socorro Calzada Age: 87 yrs Sex: Female : 1935 Arrival Date: 04/25/2023 Time: 02:59 Bed 20 Private MD: Erasto Griffiths ED Physician Cornelio Reza HPI: 04/25 03:02 This 87 yrs old Female presents to ER via Unassigned with complaints of Chest sp4 Burning, Nausea. 03:39 Patient presents with acute onset of burning epigastric and chest pain starting at 2 AM sp4 in the morning associated with nausea... Historical: - Allergies: 03:26 Codeine; kb3 03:26 Latex; kb3 - Home Meds: 03:26 losartan-hydrochlorothiazide 100-12.5 mg oral tablet 1 tab daily [Active]; Primidone kb3 Oral [Active]; - PMHx: 03:26 breast cancer; Hypertensive disorder; prolasped utereus; tremors; kb3 - PSHx: 03:26 Mastoidectomy; kb3 - Immunization history:: Adult Immunizations up to date, Client reports receiving the 2nd dose of the Covid vaccine, Last tetanus immunization: up to date. - Social history:: Smoking status: Patient denies any tobacco usage or history of. - Family history:: not pertinent. ROS: 03:39 Constitutional: Negative for fever, chills, and weight loss, Positive for chest pain , sp4 epigastric pain, nausea, generalized weakness 03:39 All other systems are negative, Exam: 03:37 ECG was reviewed by the Attending Physician. Time 03:29 that her EEG is normal sinus sp4 rhythm at rate of 70, no ST elevation or depression, no ectopy, overall normal EKG 03:39 Constitutional: This is a well developed, well nourished patient who is awake, alert, sp4 Frail elderly female, generalized weakness, feeling unwell , pale in appearance Head/Face: Normocephalic, atraumatic. Eyes: Pupils equal round and reactive to light, extra-ocular motions intact. Lids and lashes normal. Conjunctiva and sclera are not injected. Cornea within normal limits. Periorbital areas with no swelling, redness, or edema. ENT: Nares patent. No nasal discharge, no septal abnormalities noted. Tympanic membranes are normal and external auditory canals are clear. Oropharynx with no redness, swelling, or masses, exudates, or evidence of obstruction, uvula midline. Mucous membranes moist. Neck: Trachea midline, no thyromegaly or masses palpated, and no cervical lymphadenopathy. Supple, full range of motion without nuchal rigidity, or vertebral point tenderness. Chest/axilla: Normal chest wall appearance and motion. Nontender with no deformity. No lesions are appreciated. Cardiovascular: Regular rate and rhythm with a normal S1 and S2. No gallops, murmurs, or rubs. Normal PMI, no JVD. No pulse deficits. Respiratory: Lungs have equal breath sounds bilaterally, clear to auscultation and percussion. No rales, rhonchi or wheezes noted. No increased work of breathing, no retractions or nasal flaring. Abdomen/GI: Soft, non-tender, with normal bowel sounds. No distension or tympany. No guarding or rebound. No evidence of tenderness throughout. Back: No spinal tenderness. No costovertebral tenderness. Skin: Warm, dry with normal turgor. Normal color with no rashes, no lesions, and no evidence of cellulitis. MS/ Extremity: Pulses equal, no cyanosis. Neurovascular intact. Full, normal range of motion. Neuro: Awake and alert, GCS 15, oriented to person, place, time, and situation. Cranial nerves II-XII grossly intact. Motor strength 5/5 in all extremities. Sensory grossly intact. Psych: Awake, alert, with orientation to person, place and time. Behavior, mood, and affect are within normal limits Vital Signs: 03:22 BP 135 / 94; Pulse 138; Resp 20; Temp 98; Pulse Ox 94% ; Weight 77.11 kg; Height 5 ft. kb3 4 in. ; Pain 8/10; 04:36 BP 124 / 56; Pulse 67; Resp 17 S; Pulse Ox 95% on R/A; ha1 05:30 BP 117 / 52; Pulse 63; Resp 17 S; Pulse Ox 95% on R/A; ha1 03:22 Body Mass Index 29.18 (77.11 kg, 162.56 cm) kb3 03:22 Pain Scale: Adult kb3 MDM: 03:09 Patient medically screened. sp4 05:26 Differential diagnosis: Nonspecific abd pain, gastritis, pancreatitis, diverticulitis, sp4 viral gastroenteritis, gastroenteritis. Data reviewed: vital signs, nurses notes, old medical records, lab test result(s), EKG, radiologic studies, CT scan. Consideration of Admission/Observation Patient was admitted/placed on observation. Escalation of care including admission/observation considered. Management of patient was discussed with the following: Crimping Machine Operator For Metal: Dr. Griffiths.. ED course: CT revealed no evidence of acute intra-abdominal or pelvic surgical pathology. There is posterior wall rectoanal junction thickening. Stable simple appearing left renal cyst. Small hiatal hernia surgically absent gallbladder, surgically absent appendix. . ED course: We have sent message to Dr. Griffiths requesting admission for observation in the hospital for some careful IV hydration, management of nausea, and repeat assessment in 24 hours. . 04/25 03:08 Order name: Basic Metabolic Panel; Complete Time: 04:38 sp4 04/25 03:08 Order name: CBC with Diff; Complete Time: 04:38 sp4 04/25 03:08 Order name: LFT's; Complete Time: 04:38 sp4 04/25 03:08 Order name: Magnesium; Complete Time: 04:38 sp4 04/25 03:08 Order name: NT PRO-BNP; Complete Time: 04:38 sp4 04/25 03:08 Order name: PT-INR; Complete Time: 04:38 sp4 04/25 03:08 Order name: Troponin HS; Complete Time: 04:38 sp4 04/25 03:08 Order name: Lipase; Complete Time: 04:38 sp4 04/25 03:45 Order name: Urinalysis W/Microscopic; Complete Time: 05:14 sp4 04/25 03:45 Order name: COVID-19 SARS RT PCR; Complete Time: 05:14 sp4 04/25 03:45 Order name: Influenza Screen (a \T\ B); Complete Time: 05:14 sp4 04/25 03:08 Order name: XRAY Chest (1 view) 04/25 03:18 Order name: CT Abd/Pelvis - Without Contrast 04/25 03:08 Order name: EKG; Complete Time: 03:09 sp4 04/25 03:08 Order name: Cardiac monitoring; Complete Time: 03:48 sp4 04/25 03:08 Order name: EKG - Nurse/Tech; Complete Time: 03:48 sp4 04/25 03:08 Order name: IV Saline Lock; Complete Time: 03:55 sp4 04/25 03:08 Order name: Labs collected and sent; Complete Time: 03:55 sp4 04/25 03:08 Order name: O2 Per Protocol; Complete Time: 03:48 sp4 04/25 03:08 Order name: O2 Sat Monitoring; Complete Time: 03:48 sp4 EC:37 Rate is 70 beats/min. Rhythm is regular, Normal Sinus Rhythm. QRS [place] is Normal. DE sp4 interval is normal. QRS interval is normal. QT interval is normal. T waves are Normal. No ST changes noted. Clinical impression: Normal ECG. Interpreted by me. Reviewed by me. Administered Medications: 04:00 Drug: Famotidine IVP 10 mg IVP once; dilute with 10 mL 0.9% NaCl; give over 2 minutes ha1 Route: IVP; Site: right forearm; 04:30 Follow up: Response: No adverse reaction; Nausea is decreased ha1 04:00 Drug: NS 0.9% IV 1000 ml IV at 125 ml/hr continuous Route: IV; Rate: 125 ml/hr; Site: ha1 right forearm; 04:02 Drug: Ondansetron IVP 4 mg IVP once; over 2 minutes Route: IVP; Site: right forearm; ha1 04:30 Follow up: Response: No adverse reaction; Nausea is decreased ha1 05:38 Drug: Alum-Mag Hydroxide-Simeth PO Suspension (200 mg-200 mg-20 mg/5 mL) 30 ml PO once ha1 Route: PO; 06:04 Follow up: Response: No adverse reaction ha1 Disposition Summary: 04/25/23 05:30 Hospitalization Ordered Notes: Hospitalization Status: Observation sp4 Provider: Erasto Griffiths sp4 Location: Telemetry/MedSurg (observation) sp4 Condition: Stable sp4 Problem: new sp4 Symptoms: have improved sp4 Bed/Room Type: Standard sp4 Room Assignment: 217(04/25/23 05:56) Diagnosis - Nausea with vomiting, unspecified sp4 - Generalized weakness, epigastric abdominal pain, atypical chest pain, acute sp4 proctitis Forms: - Medication Reconciliation Form sp4 - SBAR form sp4 - Leadership Thank You Letter sp4 Signatures: Dispatcher [employer] EDMS Yeison, Merary, RN RN cg Ying Díaz RN RN ha1 Page Dias RN RN kb3 Cornelio Reza MD MD sp4 Corrections: (The following items were deleted from the chart) 03:28 03:26 Allergies: Latex; kb3 kb3 05:56 05:30 sp4 cg
--- NOTE | 2023-04-25 05:30 | ER ---
Nurse's Notes [facility] Name: Socorro Calzada Age: 87 yrs Sex: Female : 1935 Arrival Date: 04/25/2023 Time: 02:59 Bed 20 Private MD: Erasto Griffiths Diagnosis: Nausea with vomiting, unspecified;Generalized weakness, epigastric abdominal pain, atypical chest pain, acute proctitis Presentation: 04/25 03:22 Chief complaint: Patient states: Patient reports she was recently hospitalized in this 3 facility for severe constipation. States hr stomach has been a little upset since discharge but she attributed it to antibiotics and laxatives. States she woke up at 0100 with burning in her stomach and nausea. States she is feeling very weak. Coronavirus screen: Vaccine status: Patient reports receiving the 2nd dose of the covid vaccine. Client denies travel out of the [place] in the last 14 days. Ebola Screen: Patient negative for fever greater than or equal to 101.5 degrees Fahrenheit, and additional compatible Ebola Virus Disease symptoms Patient denies exposure to infectious person. Patient denies travel to an Ebola-affected area in the 21 days before illness onset. Initial Sepsis Screen: Does the patient meet any 2 criteria? HR > 90 bpm. No. Patient's initial sepsis screen is negative. Does the patient have a suspected source of infection? No. Patient's initial sepsis screen is negative. Risk Assessment: Do you want to hurt yourself or someone else? Patient reports no desire to harm self or others. Onset of symptoms was April 25, 2023 at 01:00. 03:22 Method Of Arrival: Wheelchair kb3 03:22 Acuity: WANDA 2 kb3 Triage Assessment: 03:26 General: Appears in no apparent distress. uncomfortable, Behavior is calm, cooperative. kb3 Pain: Complains of pain in epigastric area Pain does not radiate. Pain currently is 8 out of 10 on a pain scale. Quality of pain is described as burning. GI: Reports epigastric pain, nausea. Historical: - Allergies: 03:26 Codeine; kb3 03:26 Latex; kb3 - Home Meds: 03:26 losartan-hydrochlorothiazide 100-12.5 mg oral tablet 1 tab daily [Active]; Primidone kb3 Oral [Active]; - PMHx: 03:26 breast cancer; Hypertensive disorder; prolasped utereus; tremors; kb3 - PSHx: 03:26 Mastoidectomy; kb3 - Immunization history:: Adult Immunizations up to date, Client reports receiving the 2nd dose of the Covid vaccine, Last tetanus immunization: up to date. - Social history:: Smoking status: Patient denies any tobacco usage or history of. - Family history:: not pertinent. Screenin:08 [facility] ED Fall Risk Assessment (Adult) History of falling in the last 3 months, ha1 including since admission Yes- single mechanical fall (1 pt) Confusion or Disorientation No (0 pts) Intoxicated or Sedated No (0 pts) Impaired Gait Yes (1 pt) Mobility Assist Device Used Yes (1 pt) Altered Elimination No (0 pt) Score/Fall Risk Level 3 or more points = High Risk Oriented to surroundings, Maintained a safe environment, Educated pt \T\ family on fall prevention, incl call for assistance when getting out of bed, Hourly rounding (assess needs \T\ fall precautionary measures) done. 04:38 Abuse screen: Denies threats or abuse. Denies injuries from another. Nutritional ha1 screening: No deficits noted. Tuberculosis screening: No symptoms or risk factors identified. Assessment: 03:08 General: Appears uncomfortable, Behavior is calm, cooperative. Pain: Complains of pain ha1 in epigastric area Pain does not radiate. Pain currently is 8 out of 10 on a pain scale. Quality of pain is described as burning. Neuro: Level of Consciousness is awake, alert, obeys commands, Oriented to person, place, time, situation. Cardiovascular: Patient's skin is warm and dry. Respiratory: Airway is patent Respiratory effort is even, unlabored, Respiratory pattern is regular, symmetrical. GI: Abdomen is round non-distended, Reports epigastric pain, nausea. Derm: Skin is fragile, Skin is moist, Skin is pale. Musculoskeletal: Circulation, motion, and sensation intact. 03:29 General: Pt noted to be in atrial fibrillation,. HR 130's-150's upon arrival. Denies hx kb3 of afib. While completing triage at bedside, pt noted to have reverted to SR, HR 70's. MD notified. 04:30 Reassessment: Patient and/or family updated on plan of care and expected duration. Pain ha1 level reassessed. Patient is alert, oriented x 3, equal unlabored respirations, skin warm/dry/pink. 05:30 Reassessment: Patient and/or family updated on plan of care and expected duration. Pain ha1 level reassessed. Patient is alert, oriented x 3, equal unlabored respirations, skin warm/dry/pink. Patient states feeling better. Patient states symptoms have improved. 06:00 Reassessment: attempted to give report. ha1 06:12 Reassessment: report given to GARETT Ordaz. ha1 Vital Signs: 03:22 BP 135 / 94; Pulse 138; Resp 20; Temp 98; Pulse Ox 94% ; Weight 77.11 kg; Height 5 ft. kb3 4 in. ; Pain 8/10; 04:36 BP 124 / 56; Pulse 67; Resp 17 S; Pulse Ox 95% on R/A; ha1 05:30 BP 117 / 52; Pulse 63; Resp 17 S; Pulse Ox 95% on R/A; ha1 03:22 Body Mass Index 29.18 (77.11 kg, 162.56 cm) kb3 03:22 Pain Scale: Adult kb3 ED Course: 03:01 Patient arrived in ED. mr 03:01 Erasto Griffiths MD is Private Physician. mr 03:02 Cornelio Reza MD is Attending Physician. sp4 03:08 Patient has correct armband on for positive identification. Placed in gown. Bed in low ha1 position. Call light in reach. Side rails up X 1. 03:26 Triage completed. kb3 03:26 Arm band placed on right wrist. 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 EKG completed in triage. Results shown to MD. 03:35 Missed attempt(s): 22 gauge in right forearm. ha1 03:55 Inserted saline lock: 22 gauge in right forearm, using aseptic technique. Blood as6 collected. 04:10 CT Abd/Pelvis - Without Contrast In Process Unspecified. EDMS 04:29 XRAY Chest (1 view) In Process Unspecified. EDMS 04:35 Influenza Screen (a \T\ B) Sent. ha1 04:35 COVID-19 SARS RT PCR Sent. ha1 04:35 Urinalysis W/Microscopic Sent. ha1 05:29 rEasto Griffiths MD is Hospitalizing Provider. sp4 05:31 Ying Díaz, GARETT is Primary Nurse. ha1 06:00 No provider procedures requiring assistance completed. ha1 06:25 Provided Education on: need for admit . ha1 06:25 Patient admitted, IV remains in place. ha1 Administered Medications: 04:00 Drug: Famotidine IVP 10 mg IVP once; dilute with 10 mL 0.9% NaCl; give over 2 minutes ha1 Route: IVP; Site: right forearm; 04:30 Follow up: Response: No adverse reaction; Nausea is decreased ha1 04:00 Drug: NS 0.9% IV 1000 ml IV at 125 ml/hr continuous Route: IV; Rate: 125 ml/hr; Site: ha1 right forearm; 04:02 Drug: Ondansetron IVP 4 mg IVP once; over 2 minutes Route: IVP; Site: right forearm; ha1 04:30 Follow up: Response: No adverse reaction; Nausea is decreased ha1 05:38 Drug: Alum-Mag Hydroxide-Simeth PO Suspension (200 mg-200 mg-20 mg/5 mL) 30 ml PO once ha1 Route: PO; 06:04 Follow up: Response: No adverse reaction ha1 Medication: 04:39 VIS not applicable for this client. ha1 Outcome: 05:30 Decision to Hospitalize by Provider. sp4 06:25 Condition: stable ha1 06:25 Admitted to Med/surg accompanied by tech, via stretcher, room 217, with chart, Report ha1 called to GARETT Ordaz 06:25 Discharge instructions given to patient, family, Instructed on the need for admit, 06:25 Patient left the ED. ha1 Signatures: Dispatcher [employer] EDIL SteveAdwoa, Reg Reg mr SnowAkil, RN RN as6 Ying Díaz RN RN ha1 Page Dias, GARETT RN [email or web address] Cornelio Reza MD MD sp4 Corrections: (The following items were deleted from the chart) 03:28 03:26 Allergies: Latex; kb3 kb3 06:45 06:45 Patient left the ED. ha1 ha1
[2023-04-25] MEDS ORDERED: MAGNES/ALUMIN/SIMET 30ML UCUP ONE (05:46)
[2023-04-25] MEDS ORDERED: ALBUTEROL 2.5 MG/3 ML NEB SOL NEB PRN (07:26)
[2023-04-25] MEDS ORDERED: MAGNESIUM HYDROXIDE 8% 30 ML PO PRN (07:26)
[2023-04-25] MEDS ORDERED: ACETAMINOPHEN 325 MG TABLET PO PRN (07:26)
[2023-04-25] MEDS ORDERED: ALPRAZOLAM 0.25 MG TABLET PO PRN (07:26)
[2023-04-25] MEDS ORDERED: ONDANSETRON 4 MG/2 ML VIAL IV PRN (07:26)
[2023-04-25] MEDS: D5 0.45 NS 1,000 ML IV SCH ×2 (08:43→17:41)
--- NOTE | 2023-04-25 19:36 | PN ---
Date of Progress Note: 04/25/2023 The patient states she does not have the mid epigastric pain. They brought her to the emergency room a few days after her discharge. She felt it was possibly related to the Cipro that she had been sinan ing. However, she tolerated on at least 2 occasions prior to this. Her troponin initially was negat humberto. The second 1 was minimally elevated. We therefore placed her on telemetry and await further tr oponin levels before deciding disposition probably in the morning unless something changes cardiac-wi se. HR/MODL Voice ID: [id number] Report ID: [id number]
[2023-04-26] MEDS: D5 0.45 NS 1,000 ML IV SCH (03:26)
[2023-04-26 04:02] LABS: Potassium 3.6 mEq/L (3.5-5.1)
[2023-04-26 07:32] VITALS: BMI 29.2
--- NOTE | 2023-04-26 11:53 | RAD REPORT ---
EXAM DESCRIPTION: Chest Single View CLINICAL HISTORY: CHEST PAIN TECHNIQUE: AP chest COMPARISON: April 19 FINDINGS: CHEST: Heart: The cardiomediastinal silhouette is within normal limits. Lungs: Mild interstitial prominence. Increasing nodularity in the right upper lobe. Radiographic foll ow-up recommended. If the finding persists further characterization with CT of the chest should be co nsidered. Mediastinum: Unremarkable Pleura: No appreciable effusion. No pneumothorax. Bones: Intact IMPRESSION: Mild interstitial prominence. Increasing nodularity in the right upper lobe. Radiographi c follow-up recommended. If the finding persists further characterization with CT of the chest should be considered. Electronically signed by: Dalton Ku MD 04/25/2023 5:52 AM CDT Due to temporary technical issues with the PACS/Fluency reporting system, reports are being signed by the in house radiologists without review as a courtesy to insure prompt reporting. The interpreting radiologist is fully responsible for the content of the report.
--- NOTE | 2023-04-26 12:20 | RAD REPORT ---
EXAM DESCRIPTION: Chest Single View CLINICAL HISTORY: CHEST PAIN TECHNIQUE: AP chest COMPARISON: April 19 FINDINGS: CHEST: Heart: The cardiomediastinal silhouette is within normal limits. Lungs: Mild interstitial prominence. Increasing nodularity in the right upper lobe. Radiographic foll ow-up recommended. If the finding persists further characterization with CT of the chest should be co nsidered. Mediastinum: Unremarkable Pleura: No appreciable effusion. No pneumothorax. Bones: Intact IMPRESSION: Mild interstitial prominence. Increasing nodularity in the right upper lobe. Radiographi c follow-up recommended. If the finding persists further characterization with CT of the chest should be considered. Electronically signed by: Dalton Ku MD 04/25/2023 5:52 AM CDT Due to temporary technical issues with the PACS/Fluency reporting system, reports are being signed by the in house radiologists without review as a courtesy to insure prompt reporting. The interpreting radiologist is fully responsible for the content of the report.
[2023-04-26] MEDS ORDERED: ALBUTEROL 2.5 MG/3 ML NEB SOL NEB PRN (15:00)
[2023-04-26 15:11] VITALS: O2SAT 96
--- NOTE | 2023-04-26 17:05 | EKG ---
Test Date: 2023-04-25 Test Time: 03:29:48 Enrollment Eligibility Representative: DANIEL MEASUREMENT RESULTS: Intervals: Rate: 70 OK: 162 QRSD: 86 QT: 406 QTc: 438 [place]: P: 81 OK: 162 QRS: 31 T: 55 INTERPRETIVE STATEMENTS: Normal sinus rhythm Anterior infarct, age undetermined Abnormal ECG Compared to ECG 04/19/2023 23:11:41 Myocardial infarct finding now present Sinus arrhythmia no longer present Left-axis deviation no longer present Electronically Signed On 04-26-23 17:03:45 CDT by Dash Rae
[2023-04-26 17:43] VITALS: BP 176/77; TEMP 97.9
--- NOTE | 2023-04-26 19:19 | PN ---
Date of Progress Note: 04/26/2023 Patient feels no symptoms related to the issues that brought her to the hospital. However, we will p ut her on Protonix prophylactically while she is taking the antibiotics for a week and then using p.r .n. In view of the fact that one of the troponins was elevated, we will refer to Cardiology once her general situation settles down and repeat the chest x-ray in 2 weeks. Patient has had no prior infec tions. Did have a port put in this area when she had breast cancer, possible scarring scenario. HR/MODL Voice ID: [id number] Report ID: [id number]
== END 2023-04-26 18:25 | disposition home or self-care (01) ==
LOC: ER 02:59 → ERHOLD 05:33 → 2ND 06:06
PROVIDERS: ADMIT Family Medicine; ATTEND Family Medicine
DX: R10.13 Epigastric pain (principal); I10 Essential (primary) hypertension; Z20.822 Contact with and (suspected) exposure to COVID-19
CPT/HCPCS: 93005; 85025; 81001; 80048 ×2; 36415 ×2; 83735; 85610; 80076; 84484 ×4; 83690; 83880; 87635; 87804 ×2; 74176; 71045; 96375; 96374; 99285; J2405; J7799 ×3; J7030; G0378 ×3

== ENCOUNTER 2025-05-02 23:16 | Emergency (ER) | payer OTHER ==
--- NOTE | 2025-05-03 00:35 | RAD REPORT ---
INDICATION: fall, back pain COMPARISON: CT abdomen pelvis April 25, 2023 TECHNIQUE: Unenhanced CT of the chest, abdomen, and pelvis was performed per protocol. Multiplanar reconstructio ns were provided. Dose reduction techniques were utilized for this exam including automated exposure control, adjustmen ts to mA and/or kV according to patient's size, and the use of iterative reconstruction techniques. FINDINGS: Lack of intravenous contrast limits evaluation of the viscera and vasculature. CHEST: HEART: Normal in size. Mild coronary arterial calcifications. No pericardial effusion or thickening. AORTA: Scattered atherosclerosis throughout the thoracic aorta without aneurysmal dilatation. ADENOPATHY: No pathologic intrathoracic or axillary adenopathy. LUNGS: Bibasilar subsegmental atelectasis. No focal consolidation. No pleural effusion or pneumothora x. ABDOMEN / PELVIS: LIVER: Unremarkable. SPLEEN: Unremarkable. PANCREAS: Unremarkable. ADRENALS: Unremarkable. KIDNEYS: Simple bilateral renal cysts. No follow-up imaging recommended. No hydronephrosis. GALLBLADDER: Not well seen, possibly contracted or surgically absent. VESSELS: Scattered atherosclerotic plaque within the abdominal aorta and iliac vessels without aneury smal dilatation. BOWEL: Circumferential wall thickening of the rectoanal region again noted, similar to prior exam. Co lonic diverticulosis without evidence of diverticulitis. No bowel obstruction. APPENDIX: No pericecal inflammatory changes to suggest appendicitis. FLUID: No free fluid or abnormal fluid collection. ADENOPATHY: No pathologic adenopathy. BLADDER: Unremarkable. PELVIS: Uterus and adnexa are unremarkable. BONES: No acute bony abnormality. Multilevel degenerative changes throughout the spine. Small posteri or disc osteophyte complex at T11-T12. SOFT TISSUES: Status post left mastectomy. 1.4 cm nodular density within the upper right breast. Smal l fat-containing umbilical hernia. IMPRESSION: 1. No acute traumatic findings within the chest, abdomen or pelvis on this unenhanced exam. 2. 1.4 cm nodular density within the upper right breast. Recommend correlation with outpatient diag nostic mammography. 3. Circumferential wall thickening of the rectoanal region again noted, similar to prior exam, nons pecific. 4. Colonic diverticulosis without evidence of diverticulitis. Electronically signed by: Edmar Moreno DO 05/03/2025 12:31 AM CDT NR Due to temporary technical issues with the PACS/Superhuman reporting system, reports are being jeronimo d by the in-house radiologist without review as a courtesy to ensure prompt reporting the interpreting radiologist is fully responsible for the content of the report. Transcribed Date/Time: 05/03/2025 12:35 AM
--- NOTE | 2025-05-03 00:35 | RAD REPORT ---
CT HEAD: Clinical Indication: Bed Name: 15; fall, head injury Comparison: None TECHNIQUE: CT images were obtained from the foramen magnum to the vertex without the use of intraveno us contrast on a multidetector CT. Coronal and sagittal reformats were performed and provided as separate series. All CT scans at this location are performed using dose optimization techniques as appropriate to perf orm the study. Radiation dose reduction technique was utilized including one or more of the following: Automated exp osure control, adjustment of the mA and/or kV according to patient size and use of iterative reconstruction technique. CT Radiation Dose DLP 882.1 mGy-cm FINDINGS: BRAIN PARENCHYMA: There is generalized brain parenchymal atrophy related to the patient's age. Modera te nonspecific periventricular white matter disease changes are noted. There are no focal mass lesions on this noncontrast head CT. There is no mass effect, midline shift or edema. There are no in tra-axial or extra-axial fluid collections, intraventricular or intraparenchymal hemorrhage. There is no noncontrast CT evidence of a subacute stroke. The pineal, sellar, brainstem, cerebellum and sku ll base regions appear unremarkable. VENTRICLES: The third and fourth ventricles appear unremarkable. The lateral ventricles are slightly prominent, likely due to cerebral atrophy. The basilar cisterns are normal. ORBITS, MASTOIDS AND PARANASAL SINUSES: The visualized orbits and paranasal sinuses are unremarkable. The mastoid air cells are clear. SKULL: There are no calvarial abnormalities seen. If there is further concern for intracranial pathology or acute stroke, MRI of the brain may be perfo rmed for complete assessment. IMPRESSION: 1. No acute intracranial abnormality is noted. 2. Chronic small vessel ischemic changes in the periventricular white matter. CT CERVICAL SPINE: Clinical Indication: Bed Name: 15; fall, head injury Comparison: None Technique: Multi-detector CT imaging of the cervical spine is performed. Coronal and sagittal reconst ructions were performed and provided as separate series. All CT scans at this location are performed using dose optimization techniques as appropriate to perf orm the study. Radiation dose reduction technique was utilized including one or more of the following: Automated exp osure control, adjustment of the mA and/or kV according to patient size and use of iterative reconstruction technique. CT Radiation Dose DLP 208.1 mGy-cm FINDINGS: ALIGNMENT AND GENERAL ASSESSMENT: There is normal alignment of the cervical spine. There are no fract ures or subluxations. The craniocervical junction is normal. The atlanto-dental alignment appears unremarkable. The posterior elements and spinous processes are unremarkable. The facet joint, spinola minar and spinous process alignment are normal. Reversal of normal cervical lordosis may be due to muscle spasm and/or collar. Degenerative changes are noted along the left aspect of C1-C2 articular surfaces. Degenerative change s are also noted at C5-C6 with posterior disc osteophyte complex. DISK SPACES AND SOFT TISSUES: The prevertebral soft tissues are normal. C2-C3 to C7-T1 disc space levels show no definite disc pr otrusions on CT. There is no central or foraminal stenosis. MRI is the gold standard to assess for disk disease. VISUALIZED LUNG APICES: Unremarkable. CT myelogram or MRI of the cervical spine may be performed, if there is further concern. IMPRESSION: No acute fractures or subluxations of the cervical spine. Electronically signed by: Bj Alvarado MD 05/03/2025 12:32 AM CDT Due to temporary technical issues with the PACS/Jewel Toned reporting system, reports are being jeronimo d by the in-house radiologist without review as a courtesy to ensure prompt reporting the interpreting radiologist is fully responsible for the content of the report. Transcribed Date/Time: 05/03/2025 12:34 AM
--- NOTE | 2025-05-03 00:54 | EDPHYS ---
Physician Documentation [facility] Name: Socorro Calzada Age: 89 yrs Sex: Female : 1935 Arrival Date: 05/02/2025 Time: 23:16 Bed 15 Private MD: ED Physician Delfin Leblanc HPI: 05/02 23:25 This 89 yrs old Female presents to ER via Unassigned with complaints of fall, head rn injury. 23:25 Patient reports fell, fell backwards and struck head. Reports mild headache and mild rn neck pain but no other injury or pain. Family was present and they want her head checked. Denies back pain or extremity pain. No hip pain or pelvic pain. No rib pain or chest pain. No abdominal pain.. Historical: - Allergies: 23:29 Codeine; rg5 - PMHx: 23:29 breast cancer; Hypertensive disorder; prolasped utereus; tremors; rg5 - PSHx: 23:29 Mastoidectomy; rg5 - Immunization history:: Adult Immunizations not up to date. - Infectious Disease History:: Denies. - Family history:: not pertinent. - Social history:: Smoking status: Patient denies any tobacco usage or history of. - Hospitalizations: : No recent hospitalization is reported. ROS: 23:25 Constitutional: Negative for fever, chills, and weight loss, Eyes: Negative for injury, rn pain, redness, and discharge, ENT: Negative for injury, pain, and discharge, Neck: Mild neck pain Cardiovascular: Negative for chest pain, palpitations, and edema, Respiratory: Negative for shortness of breath, cough, wheezing, and pleuritic chest pain, Abdomen/GI: Negative for abdominal pain, nausea, vomiting, diarrhea, and constipation, Back: Negative for injury and pain, MS/Extremity: Negative for injury and deformity, Skin: Negative for injury, rash, and discoloration, Neuro: Positive for mild headache Exam: 23:25 Constitutional: This is a well developed, well nourished patient who is awake, alert, rn and in no acute distress. Head/Face: Normocephalic, atraumatic. No laceration or hematoma Eyes: Pupils equal round and reactive to light, extra-ocular motions intact. Lids and lashes normal. Conjunctiva and sclera are non-icteric and not injected. Cornea within normal limits. Periorbital areas with no swelling, redness, or edema. Neck: No midline cervical tenderness Chest/axilla: No rib tenderness or crepitus Cardiovascular: Regular rate and rhythm. No pulse deficits. Respiratory: No increased work of breathing, no retractions or nasal flaring. Abdomen/GI: Soft, non-tender, with normal bowel sounds. No distension or tympany. No guarding or rebound. No evidence of tenderness throughout. Back: No spinal tenderness MS/ Extremity: Pulses equal, no cyanosis. Neurovascular intact. Full, normal range of motion. Equal circumference. Small skin tear right elbow. Neuro: Awake and alert, GCS 15, oriented to person, place, time, and situation. Cranial nerves II-XII grossly intact. Motor strength 5/5 in all extremities. Sensory grossly intact. Vital Signs: 23:20 BP 154 / 63; Pulse 69; Resp 17; Temp 98; Pulse Ox 99% on R/A; Weight 87.63 kg; Height 5 rg5 ft. 4 in. ; Pain 0/10; 05/03 00:33 BP 138 / 71; Pulse 65; Resp 18; Pulse Ox 97% ; Pain 0/10; kt5 01:14 BP 123 / 58; Pulse 65; Resp 18; Temp 98.6; Pulse Ox 99% ; Pain 3/10; kt5 05/02 23:20 Body Mass Index 33.16 (87.63 kg, 162.56 cm) 5 05/02 23:20 Pain Scale: Adult rg5 05/03 00:33 Pain Scale: Adult kt5 01:14 Pain Scale: Adult kt5 Zalma Coma Score: 00:44 Eye Response: spontaneous(4). Motor Response: obeys commands(6). Verbal Response: rn oriented(5). Total: 15. MDM: 05/02 23:20 Medical Screening Exam initiated rn 05/03 00:44 Differential diagnosis: Contusion of Intracranial bleed- Concussion cerebral contusion. rn Data reviewed: vital signs, nurses notes, radiologic studies, CT scan, and as a result, I will discharge patient. Independent interpretation of the following test(s) in the Emergency Department CT Scan: My interpretation is CT head images negative for acute hemorrhage per my interpretation. hall monitor: rate is 65 beats/min, Rhythm is normal sinus rhythm, regular, with no ectopy, Interpretation: normal rate, normal rhythm. Care significantly affected by the following chronic conditions: Hypertension. Counseling: I had a detailed discussion with the patient and/or guardian regarding the historical points, exam findings, and any diagnostic results supporting the discharge/admit diagnosis, radiology results, the need for outpatient follow up, to return to the emergency department if symptoms worsen or persist or if there are any questions or concerns that arise at home. Response to treatment: the patient's symptoms have markedly improved after treatment, and as a result, I will discharge patient. Special discussion: Based on the patient's history, exam and DX evaluation, there is no indication for emergent intervention or inpatient TX. It is understood by the patient/guardian that if the SXs persist or worsen they need to return immediately for re-evaluation. I discussed with the patient/guardian in detail that at this point there is no indication for admission to the hospital. It is understood, however, that if the symptoms persist or worsen the patient needs to return immediately for re-evaluation. 01:16 Special discussion: I discussed with the patient the need to follow-up with the rn PCP/specialist for the noted incidental finding on X-ray/CT scanning. Discussed rectal thickening and breast nodule with patient and family in room, as well as need for mammogram and colonoscopy. They understand and will f/u accordingly.. 05/02 23:21 Order name: CT Head C Spine rn 05/02 23:53 Order name: CT Chest Abdomen Pelvis W/O Contrast rn Administered Medications: No medications were administered Disposition Summary: 05/03/25 00:53 Discharge Ordered Notes: Location: Home rn Problem: new rn Symptoms: have improved rn Condition: Stable rn Diagnosis - Unspecified injury of head, initial encounter rn - Fall on same level, unspecified rn Followup: rn - With: Private Physician - When: As needed - Reason: Recheck today's complaints, Re-evaluation by your physician Discharge Instructions: - Discharge Summary Sheet rn - Head Injury, Adult rn - Fall Prevention in the Home, Adult rn Forms: - Medication Reconciliation Form 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 EDMS EDMS 23:54 23:54 Chest Abdomen Pelvis Wo Con+CT.RAD.BRZ ordered. EDMS EDMS
--- NOTE | 2025-05-03 00:54 | ER ---
Nurse's Notes [facility] Name: Socorro Calzada Age: 89 yrs Sex: Female : 1935 Arrival Date: 05/02/2025 Time: 23:16 Bed 15 Private MD: Diagnosis: Unspecified injury of head, initial encounter;Fall on same level, unspecified Presentation: 05/02 23:20 Chief complaint: EMS states: patient coming from [facility] had mechanical fall 1 hr rg5 [employer], no LOC, no blood thinners, she had a skin tear on right elbow. 23:20 Coronavirus screen: Client denies travel out of the [place] in the last 14 days. Ebola rg5 Screen: Patient negative for fever greater than or equal to 101.5 degrees Fahrenheit, and additional compatible Ebola Virus Disease symptoms Patient denies exposure to infectious person. Patient denies travel to an Ebola-affected area in the 21 days before illness onset. Initial Sepsis Screen: Does the patient meet any 2 criteria? No. Patient's initial sepsis screen is negative. Does the patient have a suspected source of infection? No. Patient's initial sepsis screen is negative. Risk Assessment: Do you want to hurt yourself or someone else? Patient reports no desire to harm self or others. Onset of symptoms was May 02, 2025. Care prior to arrival: None. Mechanism of Injury: Fall from standing position. 23:20 Method Of Arrival: EMS: [facility] rg5 23:20 Acuity: WANDA 3 rg5 Triage Assessment: 23:29 General: Appears in no apparent distress. comfortable, Behavior is calm, cooperative, rg5 appropriate for age. Pain: Denies pain. EENT: No signs and/or symptoms were reported regarding the EENT system. Neuro: Level of Consciousness is awake, alert, obeys commands, Oriented to person, place, time, situation, Appropriate for age. Cardiovascular: Denies chest pain, Patient's skin is warm and dry. Respiratory: Airway is patent Trachea midline Respiratory effort is even, unlabored, Respiratory pattern is regular, symmetrical. GI: Abdomen is round. : No signs and/or symptoms were reported regarding the genitourinary system. Derm: Skin is fragile, Skin is dry, Skin is normal. Musculoskeletal: Circulation, motion, and sensation intact. Range of motion: intact in all extremities. Historical: - Allergies: 23:29 Codeine; rg5 - PMHx: 23:29 breast cancer; Hypertensive disorder; prolasped utereus; tremors; rg5 - PSHx: 23:29 Mastoidectomy; rg5 - Immunization history:: Adult Immunizations not up to date. - Infectious Disease History:: Denies. - Family history:: not pertinent. - Social history:: Smoking status: Patient denies any tobacco usage or history of. - Hospitalizations: : No recent hospitalization is reported. Screenin:24 [facility] ED Fall Risk Assessment (Adult) History of falling in the last 3 months, kt5 including since admission Yes- single mechanical fall (1 pt) Confusion or Disorientation No (0 pts) Intoxicated or Sedated No (0 pts) Impaired Gait No (0 pts) Mobility Assist Device Used No (0 pt) Altered Elimination No (0 pt) Score/Fall Risk Level 0 - 2 = Low Risk Oriented to surroundings, Maintained a safe environment. Abuse screen: Denies threats or abuse. Nutritional screening: No deficits noted. Tuberculosis screening: No symptoms or risk factors identified. Assessment: 23:24 General: Appears in no apparent distress. comfortable, Behavior is calm, cooperative, kt5 appropriate for age. Pain: Complains of pain in pt c/o of headache Pain currently is 3 out of 10 on a pain scale. Pain began suddenly. Neuro: No deficits noted. Jones Agitation-Sedation Scale (RASS): 0 - Alert and Calm Level of Consciousness is awake, alert, obeys commands, Oriented to person, place, time, situation, Appropriate for age denies loc. Cardiovascular: No deficits noted. Denies chest pain, Heart tones S1 S2 present Capillary refill < 3 seconds Clubbing of nail beds is absent JVD is absent. Respiratory: No deficits noted. Airway is patent Trachea midline Respiratory effort is even, unlabored, Respiratory pattern is regular, symmetrical. GI: No deficits noted. No signs and/or symptoms were reported involving the gastrointestinal system. Abdomen is round non-distended, Bowel sounds present X 4 quads. Abd is soft and non tender X 4 quads. : No deficits noted. No signs and/or symptoms were reported regarding the genitourinary system. EENT: No deficits noted. No signs and/or symptoms were reported regarding the EENT system. Derm: Skin is fragile, is thin, Skin is dry, Skin is pink, warm \T\ dry. Skin temperature is warm Wound noted small superficial skin tear to right elbow, no active bleeding noted. 23:36 General: pt to ct with tech. kt5 23:56 Reassessment: Patient appears in no apparent distress at this time. Patient and/or kt5 family updated on plan of care and expected duration. Pain level reassessed. Patient is alert, oriented x 3, equal unlabored respirations, skin warm/dry/pink. Patient states symptoms have improved. General: pt back from ct, tolerated well. 05/03 01:06 General: md at for reval. kt5 01:14 Reassessment: Patient appears in no apparent distress at this time. No changes from kt5 previously documented assessment. Patient and/or family updated on plan of care and expected duration. Pain level reassessed. Patient is alert, oriented x 3, equal unlabored respirations, skin warm/dry/pink. Patient states symptoms have improved. Vital Signs: 05/02 23:20 BP 154 / 63; Pulse 69; Resp 17; Temp 98; Pulse Ox 99% on R/A; Weight 87.63 kg; Height 5 rg5 ft. 4 in. ; Pain 0/10; 05/03 00:33 BP 138 / 71; Pulse 65; Resp 18; Pulse Ox 97% ; Pain 0/10; kt5 01:14 BP 123 / 58; Pulse 65; Resp 18; Temp 98.6; Pulse Ox 99% ; Pain 3/10; kt5 05/02 23:20 Body Mass Index 33.16 (87.63 kg, 162.56 cm) rg5 05/02 23:20 Pain Scale: Adult rg5 05/03 00:33 Pain Scale: Adult kt5 01:14 Pain Scale: Adult kt5 Jazmin Coma Score: 00:44 Eye Response: spontaneous(4). Motor Response: obeys commands(6). Verbal Response: rn oriented(5). Total: 15. ED Course: 05/02 23:20 Patient arrived in ED. vc1 23:20 Delfin Leblanc MD is Attending Physician. rn 23:24 Moni Ash RN is Primary Nurse. kt5 23:24 Bed in low position. Call light in reach. Side rails up X 1. Adult w/ patient. Client kt5 placed on continuous cardiac and pulse oximetry monitoring. NIBP monitoring applied. Door closed. Noise minimized. Pillow given. 23:24 No provider procedures requiring assistance completed. kt5 23:29 Triage completed. rg5 23:29 Arm band placed on. rg5 23:59 CT Head C Spine In Process Unspecified. EDMS 23:59 CT Chest Abdomen Pelvis W/O Contrast In Process Unspecified. EDMS 05/03 01:24 Provided Education on: follow up. kt5 Administered Medications: No medications were administered Medication: 05/02 23:24 VIS not applicable for this client. kt5 Outcome: 05/03 00:53 Discharge ordered by . rn 01:24 Discharged to home via wheelchair, with family, kt5 01:24 Condition: stable 01:24 Discharge instructions given to patient, family, Instructed on discharge instructions, follow up and referral plans. Demonstrated understanding of instructions, follow-up care, 01:25 Patient left the ED. kt5 Signatures: Dispatcher [employer] EDMS Delfin Leblanc MD MD rn Calcote, Vanessa, RN RN vc1 Lee Freedman RN RN rg5 Moni Ash, GARETT RN kt5 Corrections: (The following items were deleted from the chart) 00:08 05/02 23:24 Derm: Skin is fragile, is thin, Skin is dry, Skin is pink, warm \T\ dry. Skin kt5 temperature is warm Wound noted right elbow kt5
[2025-05-03 04:57] VITALS: BP 123/58; TEMP 98.6; O2SAT 99
== END 2025-05-03 01:25 | disposition home or self-care (01) ==
LOC: ER 23:16
DX: S09.90XA Unspecified injury of head, initial encounter (principal); M54.2 Cervicalgia; W18.30XA Fall on same level, unspecified, initial encounter
CPT/HCPCS: 70450; 71250; 72125; 74176; 99283